=== PATIENT | male | born 1960 ===

== ENCOUNTER → 2019-02-18 | Outpatient (CLI) | payer OTHER ==
[~2019-02-18] MED LIST: ATOR10 PO; CALCA500CH PO; CIPRO500 MG PO; Chlorthalidone25 MG PO; ESCI10; HYDACE10B PO; LOSA25 PO; M.V.I.-12 10 ml10 ML PO; METR500 PO; ROZEREM; SILD25T PO; TRAZ100; Vanquish Caple1 EACH PO
== END | disposition home or self-care (01) ==
LOC: LAB EV 16:15 → LAB SHORT 16:15
DX: R50.9 Fever, unspecified (principal)
CPT/HCPCS: 87086